=== PATIENT | male | born 1940 | race Caucasian/White ===

== ENCOUNTER 2019-04-21 11:33 | Emergency (ER) | payer OTHER ==
[~2019-04-21] VITALS: Ht 177.8 cm; Wt 80.3 kg
[2019-04-21 11:35] VITALS: BP_SYST 131
--- NOTE | 2019-04-21 11:35 | NUR ---
BROUGHT BACK TO BED #8 AND TRIAGED. REPORT GIVEN TO CINDA
--- NOTE | 2019-04-21 11:42 | NUR ---
RAYMOND Baez at bedside examining patient.
[2019-04-21] MEDS ORDERED: NACL 0.9% 1,000 ML IV ONE (11:45)
[2019-04-21] MEDS ORDERED: ONDANSETRON HCL 4 MG/2 ML VIAL IVP ONE (11:45)
--- NOTE | 2019-04-21 12:00 | NUR ---
Patient presented to ER with c/o fall 2 days ago. Patient alert and oriented, ambulatory to ER, arrived with . Patient states he fell out of the bed of his truck 2 days ago. Patient states he hit the back of his head, abrasion present. Patient denies KO, patient alert, oriented and responding appropriately. of patient states patient has had episode of emesis tody and sleepin mor than usual promting ER visit.
[2019-04-21 12:29] LABS: BASOPHILS % (AUTO) 0.3 % (0.0-2.0); EOSINOPHILS % (AUTO) 0.2 % (0.0-4.0); HEMATOCRIT 41.6 % (36-54); HEMOGLOBIN 13.9 g/dL (14.0-18.0); LYMPHOCYTES % (AUTO) 9.9 % (20.5-51.5); MEAN CORPUSCULAR HEMOGLOBIN 32 pg (27-31); MEAN CORPUSCULAR HGB CONC 33 % (32-36); MEAN CORPUSCULAR VOLUME 95 fL (79.0-98.0); MONOCYTES # (AUTO) 0.8 K/uL (0.0-1.0); MONOCYTES % (AUTO) 8.4 % (1.7-9.3); NEUTROPHILS # (AUTO) 8.1 K/uL (1.8-7.7); NEUTROPHILS % (AUTO) 81.2 % (40.0-70.0); PLATELET COUNT (AUTO) 146 K/uL (130-430); RED BLOOD CELL COUNT(AUTO) 4.39 MIL/uL (4.2-6.2); RED CELL DISTRIBUTION WIDTH 14.4 % (9.0-15.0)
[2019-04-21 12:49] LABS: ANION GAP 13 (5-15); CALCIUM 9.7 mg/dL (8.4-11.0); CHLORIDE 100 mmol/L (98-107); CREATININE 1.21 mg/dL (0.55-1.30); GLUCOSE 142 mg/dL (70-99); POTASSIUM 4.6 mmol/L (3.5-5.1); SODIUM SERUM 139 mmol/L (136-145); UREA NITROGEN, BLOOD 27 mg/dL (8-21)
--- NOTE | 2019-04-21 12:50 | NUR ---
TAKEN TO RADIOLOGY VIA EMERSON
--- NOTE | 2019-04-21 13:02 | NUR ---
Pt returned from radiology in stable condition
[2019-04-21 13:03] LABS: ALANINE AMINOTRANSFERASE 23 U/L (12-78); ALBUMIN 3.5 g/dL (3.4-4.8); ASPARTATE AMINOTRANSFERASE 22 U/L (10-37); TOTAL BILIRUBIN 0.7 mg/dL (0.0-1.0)
[2019-04-21] MEDS ORDERED: PHYTONADIONE 5 MG TABLET PO ONE (13:45)
--- NOTE | 2019-04-21 13:45 | NUR ---
Report given to Ashwini PEREZ
--- NOTE | 2019-04-21 13:45 | NUR ---
Christina isabel in [facility] - 04/21/19 at 1408 by SDEDTD ellyn given to Ashwini PEREZ
--- NOTE | 2019-04-21 13:57 | NUR ---
Vitamin K PO not loaded in pyxis. Per pharmacy, OK to mix liquid medication into apple juice and give PO. Dr. Powell notified and okayed.
[2019-04-21] MEDS ORDERED: PHYTONADIONE 10 MG/ML AMP PO ONE ×2 (14:00→14:30)
[2019-04-21 14:03] LABS: INR 1.4 (0.80-1.20); PROTHROMBIN TIME 13.9 SECS (9.5-12.5)
[2019-04-21 14:20] LABS: BILIRUBIN,URINE 1+ (NEGATIVE); BLOOD, URINE 2+ (NEGATIVE); CLARITY/URINE HAZY (CLEAR); COLOR,URINE YELLOW (YELLOW); GLUCOSE,URINE NEGATIVE (NEGATIVE); KETONES,URINE 2+ (NEGATIVE); LEUKOCYTE ESTERASE ,URINE 1+ (NEGATIVE); NITRITE, URINE NEGATIVE (NEGATIVE); PROTEIN URINE TRACE (NEGATIVE); UROBILINOGEN,URINE 0.2 (0.2-1.0)
[2019-04-21] MEDS ORDERED: WARF4TAB2 PO (14:23)
[2019-04-21] MEDS ORDERED: GLU850 PO (14:23)
[2019-04-21] MEDS ORDERED: OMEP20CA10 PO (14:23)
[2019-04-21] MEDS ORDERED: CYAN100070 PO (14:23)
[2019-04-21] MEDS ORDERED: SENN-104 PO (14:23)
[2019-04-21] MEDS ORDERED: LISI-600 PO (14:23)
[2019-04-21] MEDS ORDERED: SPIR25TA PO (14:23)
[2019-04-21] MEDS ORDERED: IRON1CAP27 PO (14:23)
[2019-04-21] MEDS ORDERED: PRAV10TA PO (14:23)
[2019-04-21] MEDS ORDERED: UBID100C45 PO (14:23)
[2019-04-21 14:32] LABS: BACTERIA,URINE MODERATE /HPF (None Seen)
[2019-04-21] MEDS ORDERED: cefTRIAXone 1 GM IVPB PREMIX 50 ML IV ONE (14:45)
--- NOTE | 2019-04-21 14:48 | NUR ---
Patient to be transferred to [facility]. Is being transferred due to higher level of care. Receiving facility has accepting physician and available space. ER physician has signed transfer form. Patient or responsible republican has agreed to transfer and signed form. Patient belongings inventoried and will be sent with patient. Copy of nursing notes, lab reports, EKG, Physicians Orders and X-rays to be sent with patient. Report called to Tal PEREZ at receiving facility. Receiving physician is ED physician. Care ambulance service has been called for transfer. ETA is now.
[2019-04-21 14:49] VITALS: BP_SYST 132
== END 2019-04-21 14:48 | disposition short-term general hospital (02) ==
LOC: SED 11:33
DX: S02.81XA Fracture of other specified skull and facial bones, right side, initial encounter for closed fracture (principal); S06.6X0A Traumatic subarachnoid hemorrhage without loss of consciousness, initial encounter; N39.0 Urinary tract infection, site not specified; R79.89 Other specified abnormal findings of blood chemistry; I25.2 Old myocardial infarction; Z86.73 Personal history of transient ischemic attack (TIA), and cerebral infarction without residual deficits; Z79.899 Other long term (current) drug therapy; Z79.01 Long term (current) use of anticoagulants; W18.09XA Striking against other object with subsequent fall, initial encounter; Y93.89 Activity, other specified; Y92.89 Other specified places as the place of occurrence of the external cause; Y99.8 Other external cause status
CPT/HCPCS: 36415; 70450; 71045; 80053; 81000; 84484; 85025; 85610; 85730; 87086; 93005; 96361; 96374; 99285; J0696; J2405; J3430; J7030